=== PATIENT | female | born 1945 | race Caucasian/White ===

== ENCOUNTER 2018-03-22 12:56 | Day surgery (SDC) | payer OTHER ==
[~2018-03-22] VITALS: Ht 157.5 cm; Wt 74.8 kg
[~2018-03-22 12:56] MED LIST: ACYCLOVIR200 MG PO; ASPIR 8181 M1 PO; CALCIUM 500 +1 EACH PO; CENTRUM SILVER1 EAC4 PO; CYCLOPHOSPHAMID50 M2 PO; DECADRON4 MG PO; NEURONTIN300 MG PO; OMEPRAZOLE20 MG PO
[2018-03-22 13:45] VITALS: BP 162/78
[2018-03-22 18:25] VITALS: BP 154/78
[2018-03-22 19:10] VITALS: BP 144/67
== END 2018-03-22 19:25 | disposition home or self-care (01) ==
LOC: SDC 12:56
PROC: B5181ZA Fluoroscopy of Superior Vena Cava using Low Osmolar Contrast, Guidance (ICD-10-PCS; principal; 2018-03-22)
PROC: 02HV33Z Insertion of Infusion Device into Superior Vena Cava, Percutaneous Approach (ICD-10-PCS; principal; 2018-03-22)
DX: Z45.2 Encounter for adjustment and management of vascular access device (principal); I87.8 Other specified disorders of veins; C90.00 Multiple myeloma not having achieved remission; F41.1 Generalized anxiety disorder; Z86.72 Personal history of thrombophlebitis; Z86.718 Personal history of other venous thrombosis and embolism; I10 Essential (primary) hypertension; Z82.49 Family history of ischemic heart disease and other diseases of the circulatory system
CPT/HCPCS: 71045; 87641; C1751; J0690; J2250; J3010; J7643